=== PATIENT | male | born 1990 | race Caucasian/White ===

== ENCOUNTER 2023-02-27 14:15 | Emergency (ER) | payer OTHER, BC, SELFPAY ==
[2023-02-27 14:20] VITALS: BP 124/95; PULSE 103; RESP 16; TEMP 37.2; O2SAT 97; BMI 36.5
--- NOTE | 2023-02-27 14:30 | XR_ITS ---
The [address] [address] Patient Name: LAY DENNISON MRN: [id number] date: 1990 Sex: M Assigned Patient Location: ER Current Patient Location: ED.MAIN Accession/Order Number: [id number] Exam Date: 02/27/2023 14:45 Report Date: 02/27/2023 15:30 At the request of: GONZALES BLACKWELL Procedure: XR ankle LT min 3V IMAGES REVIEWED: XR ankle LT min 3V COMPARISON: None available. CLINICAL INDICATION: pain FINDINGS/IMPRESSION: No evidence of acute osseous abnormality of the left ankle. Nonspecific subcortical 5.5 cm sclerotic bony lesion in the distal tibial metaphysis without aggressive features. 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 Electronically authenticated by: DIANA SON Date: 02/27/2023 15:30
--- NOTE | 2023-02-27 14:31 | PC.NURSE ---
no swelling at this time, denies pain to foot, pain is around left ankle and travels slightly up tib fib area. Pt has been ambulating on this, Ice in place
--- NOTE | 2023-02-27 15:27 | ED.LOWEXI1 ---
HPI - Extremity Injury (Lower) General Chief Complaint: Extremity Injury, Lower Stated Complaint: LOWER EXTREMITY INJURY Time Seen by Provider: 02/27/23 15:11 Source: patient Mode of arrival: walk-in History of Present Illness HPI Narrative: patient here complaining of pain over his left ankle. Nurse's triage him for imaging of the ankle. 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 He's not had previous fractures or injuries to his left ankle. Does not have any pain over the knee or hip. 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 He points to the lateral malleolus and anterior tibia-fibula area as area of discomfort. Related Data Allergies Allergy/AdvReac Type Severity Reaction Status Date / Time Sulfa (Sulfonamide Allergy Severe Verified 02/27/23 14:24 Antibiotics) Exam Narrative Exam Narrative: pleasant awake alert. Has no discomfort over the medial deltoid ligament area. Has no discomfort over the Achilles mechanism. Does have discomfort over the anterior talofibular ligament. No bony tenderness over the malleolus. Does not have any tenderness over the distal fibular area. Neurovascular examination is normal. Constitutional Vital Signs, click to edit/add: Last Vital Signs Temp 98.9 F 02/27/23 14:20 Pulse 103 H 02/27/23 14:20 Resp 16 02/27/23 14:20 BP 124/95 H 02/27/23 14:20 Pulse Ox 97 02/27/23 14:20 O2 Del Method Room Air 02/27/23 14:20 Course Vital Signs Vital signs: Vital Signs Temperature 98.9 F 02/27/23 14:20 Pulse Rate 103 H 02/27/23 14:20 Respiratory Rate 16 02/27/23 14:20 Blood Pressure 124/95 H 02/27/23 14:20 Pulse Oximetry 97 02/27/23 14:20 Oxygen Delivery Method Room Air 02/27/23 14:20 Temperature 98.9 F 02/27/23 14:20 Pulse Rate 103 H 02/27/23 14:20 Respiratory Rate 16 02/27/23 14:20 Blood Pressure 124/95 H 02/27/23 14:20 Pulse Oximetry 97 02/27/23 14:20 Oxygen Delivery Method Room Air 02/27/23 14:20 MDM - Extremity Injury (Lower) MDM Narrative Medical decision making narrative: preliminary x-ray interpretation by myself shows no acute fracture. This is consistent with a grade 2 ankle sprain. Treatment recommendations will be discussed Discharge Plan Discharge Chief Complaint: Extremity Injury, Lower Clinical Impression: Ankle sprain and strain Patient Disposition: Home, Self-Care Time of Disposition Decision: 15:29 Stand Alone Forms: Portal Instructions Referrals: Physician,Non-Staff, MD [Primary Care Provider] - 1 week
== END 2023-02-27 15:46 | disposition home or self-care (01) ==
PROVIDERS: Emergency Provider Emergency Medicine Emergency Medical Services
DX: S93.402A Sprain of unspecified ligament of left ankle, initial encounter (principal); S96.912A Strain of unspecified muscle and tendon at ankle and foot level, left foot, initial encounter; X50.1XXA Overexertion from prolonged static or awkward postures, initial encounter
CPT/HCPCS: 73610; 99283